=== PATIENT | female | born 1970 | race Two or more races ===

== ENCOUNTER 2023-09-12 21:59 | Emergency (ER) | payer OTHER ==
[~2023-09-12] VITALS: Ht 162.6 cm; Wt 85.0 kg
[2023-09-12 23:02] VITALS: PULSE 66; RESP 16; O2SAT 98
[2023-09-13] MEDS: MORPHINE SULFATE 4 MG/ML SYR/VIAL IV ONE (00:05)
[2023-09-13 00:15] VITALS: O2SAT 97
[2023-09-13 00:35] VITALS: BP 159/86; PULSE 65; RESP 15
[2023-09-13] MEDS: ONDANSETRON HCL 4 MG/2 ML VIAL IV ONE (00:58)
[2023-09-13] MEDS ORDERED: HYDR-4798 PO (01:16)
[2023-09-13] MEDS ORDERED: IBUP-1455 PO (01:16)
== END 2023-09-13 02:04 | disposition home or self-care (01) ==
LOC: EDBD 21:59 → ER 21:59
DX: S52.591A Other fractures of lower end of right radius, initial encounter for closed fracture (principal); E11.9 Type 2 diabetes mellitus without complications; Z88.0 Allergy status to penicillin; W01.0XXA Fall on same level from slipping, tripping and stumbling without subsequent striking against object, initial encounter; Y93.89 Activity, other specified; Y92.512 Supermarket, store or market as the place of occurrence of the external cause; Y99.8 Other external cause status
CPT/HCPCS: 29125; 73110; 96374; 96375; 99285; J2270; J2405